=== PATIENT | male | born 1970 | race Caucasian/White ===

== ENCOUNTER → 2019-08-07 | Outpatient (CLI) | payer OTHER ==
[2019-08-07 20:19] LABS: HCT 48.1 % (39.0-53.0); HGB 16.3 gm/dL (13.0-17.5); MCH 29.9 pg (25.0-35.0); MCV 87.9 fL (80.0-100.0); Mean Platelet Volume 8.4; Platelet Count 249 k/uL (150-450); RBC 5.46 m/uL (4.30-5.90); RDW 12.1 % (11.5-15.5); WBC 8.1 k/uL (3.8-10.6)
[2019-08-07 20:56] LABS: Band Neutrophils % 1 %; Lymphocytes # (M) 2.19 k/uL (1.0-4.8); Monocytes # (M) 1.13 k/uL (0-1.0); Neutrophils % (M) 58 %; Nucleated Red Blood Cells 0 /100 WBC (0-0); Total Cells Counted 100
[2019-08-07 23:47] LABS: African American GFR (CKD) 102.7 (60.0-200.0); Albumin 4.7 g/dL (3.80-4.90); Albumin/Globulin Ratio 2.35 (1.60-3.17); Anion Gap 8.7 mmol/L (4.00-12.00); Calcium 9.3 mg/dL (8.7-10.3); Carbon Dioxide 28.3 mmol/L (21.6-31.8); Magnesium 1.8 mg/dL (1.5-2.4); Non-African American GFR(CKD) 88.6 (60.0-200.0); Potassium 3.8 mmol/L (3.5-5.5); Total Bilirubin 0.8 mg/dL (0.3-1.2); Total Protein 6.7 g/dL (6.2-8.2)
== END | disposition home or self-care (01) ==
LOC: LABMAIN 18:58
PROVIDERS: ATTEND Nurse Practitioner Family
DX: R19.7 Diarrhea, unspecified (principal)
CPT/HCPCS: 36415; 80053; 83735; 84443; 85025; 87045; 87046; 87324; 87328; 87329

== ENCOUNTER → 2021-04-28 | Outpatient (CLI) | payer OTHER ==
--- NOTE | 2021-04-28 17:23 | MR ---
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 Technique: Multiplanar, multisequence images of the left wrist were obtained after intra-articular ad ministration of a gadolinium mixture. Please refer to arthrogram injection report of the same day for further details. FINDINGS: Dorsal subluxation at the level of the distal radioulnar joint. Poor delineation to the volar radioul giuseppe ligament. Subtle thickness defect across the central portion of the TFC and contrast extension into the distal radioulnar joint. Anterior subluxation of the extensor carpi ulnaris. The patient's forearm is in a pronated position. Contrast extends into the ECU tendon sheath across the expected ulnar-sided attachment of the ECU sub sheath. Incidental bone island distal radial epiphysis and within the distal two third scaphoid. No suspiciou s bone marrow placement. No bone marrow edema. There is a type II hamate incidentally noted. No abnormal extension of injected contrast into the second carpal row to suggest injury to the scapho lunate ligament. There is mild iatrogenic extravasation along the ulnar aspect of the wrist. Otherwise, the dorsal extensor and volar flexor tendons appears satisfactory. No abnormal enlargement of the median nerve. IMPRESSION: 1. Tear involving the ulnar-sided attachment of the ECU subsheath allowing for anterior ECU tendon anderson bluxation. 2. Small full-thickness tear through the central portion of the TFC with contrast secondarily enterin g the distal radioulnar joint. 3. Dorsal subluxation at the distal radioulnar joint with poor delineation to the volar radioulnar li gament. Findings suggest ligamentous sprain or tear. Correlate for any DRUJ instability.
--- NOTE | 2021-05-01 00:47 | FL ---
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 PROCEDURES: 1. Left wrist fluoroscopy. 2. Left wrist arthrogram. TECHNIQUE: The procedure, risks, and alternatives, were discussed with the patient, who requested that keeley claudio. The consent form was signed, and teach-back occurred. The site/side of the procedure was marked with a line with participation by the patient. The accompan katelyn paperwork was verified for consistency. A directed history and physical exam was performed prior to the procedure. Medication reconciliation was performed by ancillary personnel. A critical pause was performed with assisting personnel just pr ior to the procedure, and the patient's identity was confirmed using 2 identifiers. Imaging guidance was utilized to select the precise skin entry point just prior to the procedure. The dorsal left wrist was prepped and draped in the usual sterile fashion and local 1% lidocaine anes thesia was instilled. Under fluoroscopic guidance, a long 25-gauge needle was introduced into the do rsal aspect of the radioscaphoid joint. Appropriate needle tip position was confirmed after a small a mount of contrast injection. Approximately 2.5 ml of a gadolinium mixture (taken from a combination of 5 ml Isovue-370, 15 mL ster ile saline, and 0.07 mL Gadavist) was injected into the glenohumeral joint. The needle was then remov ed. The patient tolerated the procedure well. There was no immediate complication. After the procedure, the patient's condition was unchanged. Estimated blood loss was minimal. IMPRESSION: Technically successful left wrist arthrogram injection for MRI. No immediate complication.
== END | disposition home or self-care (01) ==
LOC: RADFLMAIN 13:13
PROVIDERS: ATTEND Orthopaedic Surgery Hand Surgery
DX: S53.31XA Traumatic rupture of right ulnar collateral ligament, initial encounter (principal); X58.XXXA Exposure to other specified factors, initial encounter
CPT/HCPCS: 25246; 73115; 73222; A9585; Q9967

== ENCOUNTER 2023-01-30 00:56 | Emergency (ER) | payer OTHER ==
[2023-01-30 01:03] VITALS: TEMP 97.5
[2023-01-30 01:50] LABS: ALT 25 U/L (4-49); AST 29 U/L (17-59); African American GFR (CKD) 82 (>60 ml/min/1.73 sqM); Albumin 4.5 g/dL (3.5-5.0); Alkaline Phosphatase 72 U/L (38-126); Anion Gap 8 mmol/L; Blood Urea Nitrogen 24 mg/dL (9-20); Carbon Dioxide 26 mmol/L (22-30); Chloride 105 mmol/L (98-107); Glucose 104 mg/dL (74-99); Non-African American GFR(CKD) 71 (>60 ml/min/1.73 sqM); Potassium 4.2 mmol/L (3.5-5.1); Sodium 139 mmol/L (137-145); Total Bilirubin 0.5 mg/dL (0.2-1.3); Total Protein 7.5 g/dL (6.3-8.2)
[2023-01-30 01:51] LABS: Basophils # (A) 0.1 k/uL (0-0.2); Basophils % (A) 1 %; Eosinophils # (A) 0.2 k/uL (0-0.7); Eosinophils % (A) 2 %; HCT 47.2 % (39.0-53.0); HGB 16.3 gm/dL (13.0-17.5); Lymphocytes # (A) 3.5 k/uL (1.0-4.8); Lymphocytes % (A) 34 %; MCH 30.9 pg (25.0-35.0); MCHC 34.6 g/dL (31.0-37.0); MCV 89.1 fL (80.0-100.0); Monocytes # (A) 0.7 k/uL (0-1.0); Monocytes % (A) 7 %; Neutrophils # (A) 5.8 k/uL (1.3-7.7); Neutrophils % (A) 56 %; Partial Thromboplastin Time 26.8 sec (22.0-30.0); Platelet Count 247 k/uL (150-450); Prothrombin Time 10.9 sec (9.0-12.0); RDW 12.3 % (11.5-15.5); WBC 10.4 k/uL (3.8-10.6)
[2023-01-30] MEDS ORDERED: LORazepam 0.5 MG TAB PO STA (04:10)
--- NOTE | 2023-01-30 05:34 | ED ---
General Adult HPI - General Chief complaint: Shortness of Breath Stated complaint: Chest Tightness, Shortness of Breath Time Seen by Provider: 01/30/23 04:00 Source: patient, RN notes reviewed, old records reviewed Mode of arrival: ambulatory Limitations: no limitations - History of Present Illness Initial comments: Patient is a 52-year-old male with past medical history remarkable for very mild asthma who presents emergency Department complaining of a chest tightness sensation. States it feels like his heart is squeezing. States he has these episodes on and off on a regular basis but this evening seemed a little bit worse. 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 Denies any cardiac history. Does not smoke. Denies any shortness of breath with it. States it feels like a squeezing/tightness..Patient states that when he is having the chest tightness he is having some mild shortness of breath with it. It is more of a feeling that the chest tightness is overbearing. Usually with rest because away but states that it was worse this evening. States started this evening while watching TV. Does endorse a recent stressors. Patient does discuss the stressors a lot, it does appear that he is anxious. States he was prescribed medications for anxiety place PCP but he has not started them. Presents for further evaluation at this time. At the time of my reevaluation, patient is pain-free. Work up was started while the patient was in triage. - Related Data Home Medications Medication Instructions Recorded Confirmed No Known Home Medications 09/15/19 10/02/19 Allergies Allergy/AdvReac Type Severity Reaction Status Date / Time cats and dust Allergy Unknown Uncoded 01/30/23 01:03 Review of Systems ROS Statement: Those systems with pertinent positive or pertinent negative responses have been documented in the HPI. Review of Systems: CONST: Denies fever EYES: Denies blurry vision ENT: Denies nasal congestion C/V: Denies Chest pain RESP: Denies shortness of breath GI: Denies abdominal pain : Denies dysuria SKIN: Denies rash. MSK: Denies joint pain. NEURO: Denies headache ROS Other: All systems not noted in ROS Statement are negative. Past Medical History Past Medical History: Asthma Additional Past Medical History / Comment(s): PT STATES HAS HAD AN ALLERGY INDUCED DRY COUGH FOR PAST WEEK, NO FEVER, NO SOB. 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 HEAD: Normal with no signs of head trauma. EYES: PERRLA, EOMI, conjunctiva normal, no discharge. ENT: Hearing grossly intact, normal oropharynx. RESPIRATORY: Clear breath sounds bilaterally. No wheezes, rales, or rhonchi. C/V: Regular rate and rhythm. S1 and S2 auscultated,peripheral pulses 2+ and in tact throughout ABD: Abd is soft, nontender, nondistended EXT: Normal range of motion, no obvious deformity SKIN: No rashes or lesions observed on exposed skin. NEURO: Alert and oriented 4. Limitations: no limitations Course Vital Signs 01/30/23 01:00 Temperature 97.5 F L Pulse Rate 79 Respiratory 18 Rate Blood Pressure 143/88 O2 Sat by Pulse 97 Oximetry Medical Decision Making - Medical Decision Making Was pt. sent in by a medical professional or institution (MISSY Richardson, ELECTRIC POWER MACHINE OPERATOR, urgent care, hospital, or halfway...) When possible be specific @ -No Did you speak to anyone other than the patient for history (EMS, parent, family, police, friend...)? What history was obtained from this source @ -No Did you review nursing and triage notes (agree or disagree)? Why? @ -I reviewed and agree with nursing and triage notes Were old charts reviewed (outside hosp., previous admission, EMS record, old EKG, old radiological studies, urgent care reports/EKG's, halfway records)? Report findings @ -No old charts were reviewed Differential Diagnosis (chest pain, altered mental status, abdominal pain women, abdominal pain men, vaginal bleeding, weakness, fever, dyspnea, syncope, headache, dizziness, GI bleed, back pain, seizure, CVA, palpatations, mental health, musculoskeletal)? @ -Differential Chest Pain: Stable Angina, Unstable Angina, STEMI, NSTEMI Aortic Dissection, Pneumothorax, Musculoskeletal, Esophageal Spasm GERD, Cholecystitis, Pancreatitis, Zoster, this is not meant to be an all-inclusive list. EKG interpreted by me (3pts min.). @ -As above X-rays interpreted by me (1pt min.). @ -Chest x-ray revealed no obvious acute cardio pulmonary process. CT interpreted by me (1pt min.). @ -None done U/S interpreted by me (1pt. min.). @ -None done What testing was considered but not performed or refused? (CT, X-rays, U/S, labs)? Why? @ -None What meds were considered but not given or refused? Why? @ -None Did you discuss the management of the patient with other professionals (professionals i.e. , PA, ELECTRIC POWER MACHINE OPERATOR, lab, RT, psych nurse, psychosocial rehabilitation counselor, termite exterminator helper, teacher, quarantine officer, caseworker intake)? Give summary @ -No Was smoking cessation discussed for >3mins.? @ -No Was critical care preformed (if so, how long)? @ -No Were there social determinants of health that impacted care today? How? (Homelessness, low income, unemployed, alcoholism, drug addiction, dacosta sportation, low edu. Level, literacy, decrease access to med. care, care home, rehab)? @ -No Was there de-escalation of care discussed even if they declined (Discuss DNR or withdrawal of care, Hospice)? DNR status @ -No What co-morbidities impacted this encounter? (DM, HTN, Smoking, COPD, CAD, Cancer, CVA, ARF, Chemo, Hep., AIDS, mental health diagnosis, sleep apnea, morbid obesity)? @ -None Was patient admitted / discharged? Hospital course, mention meds given and route, prescriptions, significant lab abnormalities, going to OR and other pertinent info. @ -Based on the patient's presentation and physical exam, patient's workups was started in triage. Presents today with a chest tightness sensation that is chronic. Appears to be anxiety related. No cardiac history. I would like to obtain a cardiac workup. This is already started in triage and labs are re markable for an undetectable troponin. EKG shows no obvious acute ischemic process. Chest x-ray is unremarkable. Vital signs within acceptable limits. Patient will be given a small dose of Ativan we will obtain a 3 hour troponin. He was in agreement with this plan. Repeat troponin is still undetectable. Patient's chest pain remains resolved. I discussed with him I do have a strong suspicion this is likely from anxiety. Patient's heart score is low. I believe it is safe for him to be discharged home with close follow-up. He was in agreement this plan. I instructed the patient to follow up with their PCP in the next 1-3 days. I explained that the patient should return to the emergency department if they experience any worsening symptoms. Strict return precautions were discussed with the patient. The patient expressed understanding of these instructions. I answered all questions that the patient had. The patient was discharged home in good condition with their prescriptions and follow up information. Undiagnosed new problem with uncertain prognosis? @ -No Drug Therapy requiring intensive monitoring for toxicity (Heparin, Nitro, Insulin, Cardizem)? @ -No Were any procedures done? @ -No Diagnosis/symptom? @ -Atypical chest pain, anxiety Acute, or Chronic, or Acute on Chronic? @ -Acute on chronic Uncomplicated (without systemic symptoms) or Complicated (systemic symptoms)? @ -Uncomplicated Side effects of treatment? @ -No Exacerbation, Progression, or Severe Exacerbation? @ -No Poses a threat to life or bodily function? How? (Chest pain, USA, [place], pneumonia, PE, COPD, DKA, ARF, appy, cholecystitis, CVA, Diverticulitis, Homicidal, Suicidal, threat to staff... and all critical care pts) @ -No - Lab Data Result diagrams: 01/30/23 01:29 01/30/23 01:29 Lab Results 01/30/23 01/30/23 01/30/23 Range/Units 01:25 01:29 01:29 WBC 10.4 (3.8-10.6) k/uL RBC 5.30 (4.30-5.90) m/uL Hgb 16.3 (13.0-17.5) gm/dL Hct 47.2 (39.0-53.0) % MCV 89.1 (80.0-100.0) fL MCH 30.9 (25.0-35.0) pg MCHC 34.6 (31.0-37.0) g/dL RDW 12.3 (11.5-15.5) % Plt Count 247 (150-450) k/uL MPV 8.0 Neutrophils % 56 % Lymphocytes % 34 % Monocytes % 7 % Eosinophils % 2 % Basophils % 1 % Neutrophils # 5.8 (1.3-7.7) k/uL Lymphocytes # 3.5 (1.0-4.8) k/uL Monocytes # 0.7 (0-1.0) k/uL Eosinophils # 0.2 (0-0.7) k/uL Basophils # 0.1 (0-0.2) k/uL PT 10.9 (9.0-12.0) sec INR 1.0 (<1.2) APTT 26.8 (22.0-30.0) sec Sodium (137-145) mmol/L Potassium (3.5-5.1) mmol/L Chloride (98-107) mmol/L Carbon Dioxide (22-30) mmol/L Anion Gap mmol/L BUN (9-20) mg/dL Creatinine (0.66-1.25) mg/dL Est GFR (CKD-EPI)AfAm (>60 ml/min/1.73 sqM) Est GFR (CKD-EPI)NonAf (>60 ml/min/1.73 sqM) Glucose (74-99) mg/dL Calcium (8.4-10.2) mg/dL Magnesium (1.6-2.3) mg/dL Total Bilirubin (0.2-1.3) mg/dL AST (17-59) U/L ALT (4-49) U/L Alkaline Phosphatase (38-126) U/L Troponin I <0.012 (0.000-0.034) ng/mL Total Protein (6.3-8.2) g/dL Albumin (3.5-5.0) g/dL 01/30/23 01/30/23 Range/Units 01:29 04:40 WBC (3.8-10.6) k/uL RBC (4.30-5.90) m/uL Hgb (13.0-17.5) gm/dL Hct (39.0-53.0) % MCV (80.0-100.0) fL MCH (25.0-35.0) pg MCHC (31.0-37.0) g/dL RDW (11.5-15.5) % Plt Count (150-450) k/uL MPV Neutrophils % % Lymphocytes % % Monocytes % % Eosinophils % % Basophils % % Neutrophils # (1.3-7.7) k/uL Lymphocytes # (1.0-4.8) k/uL Monocytes # (0-1.0) k/uL Eosinophils # (0-0.7) k/uL Basophils # (0-0.2) k/uL PT (9.0-12.0) sec INR (<1.2) APTT (22.0-30.0) sec Sodium 139 (137-145) mmol/L Potassium 4.2 (3.5-5.1) mmol/L Chloride 105 (98-107) mmol/L Carbon Dioxide 26 (22-30) mmol/L Anion Gap 8 mmol/L BUN 24 H (9-20) mg/dL Creatinine 1.18 (0.66-1.25) mg/dL Est GFR (CKD-EPI)AfAm 82 (>60 ml/min/1.73 sqM) Est GFR (CKD-EPI)NonAf 71 (>60 ml/min/1.73 sqM) Glucose 104 H (74-99) mg/dL Calcium 9.0 (8.4-10.2) mg/dL Magnesium 2.0 (1.6-2.3) mg/dL Total Bilirubin 0.5 (0.2-1.3) mg/dL AST 29 (17-59) U/L ALT 25 (4-49) U/L Alkaline Phosphatase 72 (38-126) U/L Troponin I <0.012 (0.000-0.034) ng/mL Total Protein 7.5 (6.3-8.2) g/dL Albumin 4.5 (3.5-5.0) g/dL - EKG Data -: EKG Interpreted by Me EKG Comments: 12-lead Electrocardiogram Interpretation Note EKG was reviewed and interpreted by myself. 12-lead ECG performed at 0109 is interpreted by me as revealing normal sinus rhythm at a rate of 77 beats per minute. [place] is durable. LA interval 148 ms, QRS duration is 90 ms, QTc is 409 ms.. There were no ST or T wave abnormalities to suggest myocardial ischemia or injury. R wave progression across the precordium was satisfactory. By my interpretation this EKG is non-diagnostic for acute ischemia. Disposition Clinical Impression: Atypical chest pain, Anxiety Disposition: HOME SELF-CARE Condition: Good Instructions (If sedation given, give patient instructions): Chest Pain (ED), Anxiety (ED) Is patient prescribed a controlled substance at d/c from ED?: No Referrals: Félix Bush MD [Primary Care Provider] - 1-2 days Time of Disposition: 05:24
[2023-01-30 06:33] VITALS: BP 125/90; PULSE 73; RESP 16
--- NOTE | 2023-01-30 07:22 | XR ---
EXAMINATION TYPE: XR chest 2V DATE OF EXAM: 01/30/2023 2:18 AM COMPARISON: Chest radiographs from 01/30/2023 TECHNIQUE: XR chest 2V Frontal and lateral views of the chest. CLINICAL INDICATION:Male, 52 years old with history of chest pain; FINDINGS: Lungs/Pleura: There is no evidence of pleural effusion, focal consolidation, or pneumothorax. Pulmonary vascularity: Unremarkable. Heart/mediastinum: Cardiomediastinal silhouette is unremarkable. Musculoskeletal: No acute osseous pathology. IMPRESSION: No acute cardiopulmonary disease/process.
== END 2023-01-30 05:55 | disposition home or self-care (01) ==
LOC: EC 00:56
DX: R07.89 Other chest pain (principal); F41.9 Anxiety disorder, unspecified; J45.909 Unspecified asthma, uncomplicated; F12.90 Cannabis use, unspecified, uncomplicated; Z91.048 Other nonmedicinal substance allergy status
CPT/HCPCS: 36415; 71046; 80053; 83735; 84484; 85025; 85610; 85730; 93005; 99285

== ENCOUNTER 2023-07-11 13:25 | Emergency (ER) | payer OTHER ==
--- NOTE | 2023-07-11 13:51 | ED ---
General Adult HPI - General Chief complaint: Upper Respiratory Infection Stated complaint: Cough, JANE Time Seen by Provider: 07/11/23 13:34 Source: patient, RN notes reviewed Mode of arrival: ambulatory Limitations: no limitations - History of Present Illness Initial comments: 52-year-old male with past medical history significant for exercise- induced asthma presents the emergency department with a chief complaint of cough. Patient has had a persistent cough for the last 10 days. He reports that last night and this morning and has had a yellow to brown in color. He denies any known fevers, headache, chest pain or palpitations, nausea or vomiting, abdominal pain. Patient denies tobacco product use - Related Data Previous Rx's Medication Instructions Recorded Albuterol Inhaler [Ventolin Hfa 1 puff INHALATION QID #8 gm 07/11/23 Inhaler] Azithromycin [Zithromax Z Pack] 0 tab PO DIRECTED #6 tab 07/11/23 Benzonatate [Tessalon Perles] 100 mg PO TID PRN #30 capsule 07/11/23 predniSONE 50 mg PO DAILY #5 tab 07/11/23 Allergies Allergy/AdvReac Type Severity Reaction Status Date / Time cats and dust Allergy Unknown Uncoded 07/11/23 14:50 Review of Systems ROS Statement: Those systems with pertinent positive or pertinent negative responses have been documented in the HPI. ROS Other: All systems not noted in ROS Statement are negative. Past Medical History Past Medical History: Asthma Additional Past Medical History / Comment(s): PT STATES HAS HAD AN ALLERGY INDUCED DRY COUGH FOR PAST WEEK, NO FEVER, NO SOB. 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 Eyes PERRL, EOMI intact, mucous membranes moist Respiratory: Lungs clear to auscultation bilaterally Cardiovascular: Heart rate regular rate and rhythm Abdominal: Soft without guarding or rebound Extremities: Normal inspection with full range of motion and normal capillary refill Neuroogic: alert and oriented 3, CN II-XII intact, able to ambulate with steady gait Skin: warm dry and intact with normal color Limitations: no limitations Course Vital Signs 07/11/23 13:30 Temperature 98.9 F Pulse Rate 79 Respiratory 18 Rate Blood Pressure 113/74 O2 Sat by Pulse 96 Oximetry - Reevaluation(s) Reevaluation #1: 07/11/23 14:55 Patient reevaluated. Patient updated on results. Patient agreeable with the plan for discharge home Medical Decision Making - Medical Decision Making Was pt. sent in by a medical professional or institution (, MISSY, SEAFOOD CLERK, urgent care, hospital, or long term...) When possible be specific @ -[No] Did you speak to anyone other than the patient for history (EMS, parent, family, police, friend...)? What history was obtained from this source @ -[No] Did you review nursing and triage notes (agree or disagree)? Why? @ -[I reviewed and agree with nursing and triage notes] Were old charts reviewed (outside hosp., previous admission, EMS record, old EKG, old radiological studies, urgent care reports/EKG's, long term records)? Report findings @ -[No old charts were reviewed] Differential Diagnosis (chest pain, altered mental status, abdominal pain women, abdominal pain men, vaginal bleeding, weakness, fever, dyspnea, syncope, headache, dizziness, GI bleed, back pain, seizure, CVA, palpatations, mental health, musculoskeletal)? @ -[not applicable] EKG interpreted by me (3pts min.). @ -[As above] X-rays interpreted by me (1pt min.). @ X-ray does not reveal any focal consolidation or cardiomegaly. CT interpreted by me (1pt min.). @ -[None done] U/S interpreted by me (1pt. min.). @ -[None done] What testing was considered but not performed or refused? (CT, X-rays, U/S, labs)? Why? @ -[None] What meds were considered but not given or refused? Why? @ -[None] Did you discuss the management of the patient with other professionals (professionals i.e. , MISSY, SEAFOOD CLERK, lab, RT, psych nurse, social insurance administrator, numerical control nesting operator, teacher, gunnery/ordnance officer, foster care case manager)? Give summary @ -[No] Was smoking cessation discussed for >3mins.? @ -[No] Was critical care preformed (if so, how long)? @ -[No] Were there social determinants of health that impacted care today? How? (Homelessness, low income, unemployed, alcoholism, drug addiction, transportation, low edu. Level, literacy, decrease access to med. care, [facility], rehab)? @ -[No] Was there de-escalation of care discussed even if they declined (Discuss DNR or withdrawal of care, Hospice)? DNR status @ -[No] What co-morbidities impacted this encounter? (DM, HTN, Smoking, COPD, CAD, Cancer, CVA, ARF, Chemo, Hep., AIDS, mental health diagnosis, sleep apnea, morbid obesity)? @ -[None] Was patient admitted / discharged? Hospital course, mention meds given and route, prescriptions, significant lab abnormalities, going to OR and other pertinent info. @ -Charts. This is a pleasant 52-year-old male who presents to the emergency department with cough. Patient had a thorough history and physical exam performed. Patient does have a slight cough during evaluation. Vital signs stable upon evaluation No wheezes or rhonchi heard. Patient is afebrile and nontoxic appearing. Patient had x-ray and vital signs performed. Results negative. I discussed the results in detail the patient was examined and all questions addressed. He'll be provided prescription for azithromycin and prednisone and Tessalon Perles and albuterol inhaler. Return precautions discussed at length. Discharged in stable condition. Discussed with, ED attending who agrees with plan of care Undiagnosed new problem with uncertain prognosis? @ -[No] Drug Therapy requiring intensive monitoring for toxicity (Heparin, Nitro, Insulin, Cardizem)? @ -[No] Were any procedures done? @ -[No] Diagnosis/symptom? @ -Cough Acute, or Chronic, or Acute on Chronic? @ -Acute Uncomplicated (without systemic symptoms) or Complicated (systemic symptoms)? @ -Uncomplicated Side effects of treatment? @ -[No] Exacerbation, Progression, or Severe Exacerbation? @ -[No] Poses a threat to life or bodily function? How? (Chest pain, [place], [place], pneumonia, PE, COPD, DKA, ARF, appy, cholecystitis, CVA, Diverticulitis, Homicidal, Suicidal, threat to staff... and all critical care pts) @ -Low likelihood - Lab Data Lab Results 07/11/23 Range/Units 13:38 Influenza Type A (PCR) Not Detected (Not Detectd) Influenza Type B (PCR) Not Detected (Not Detectd) RSV (PCR) Not Detected (Not Detectd) SARS-CoV-2 (PCR) Not Detected (Not Detectd) Disposition Clinical Impression: Cough Disposition: HOME SELF-CARE Condition: Stable Instructions (If sedation given, give patient instructions): Upper Respiratory Infection (ED) Additional Instructions: Please take the antibiotic and prednisone prescribed Please return to the nearest emergency department if worsening symptoms Prescriptions: predniSONE 50 mg PO DAILY #5 tab Benzonatate [Tessalon Perles] 100 mg PO TID PRN #30 capsule PRN Reason: Cough Albuterol Inhaler [Ventolin Hfa Inhaler] 1 puff INHALATION QID #8 gm Azithromycin [Zithromax Z Pack] 0 tab PO DIRECTED #6 tab Is patient prescribed a controlled substance at d/c from ED?: No Referrals: Félix Bush MD [Primary Care Provider] - 1-2 days Time of Disposition: 14:48
[2023-07-11 13:52] VITALS: BP 113/74; PULSE 79; RESP 18; TEMP 98.9
--- NOTE | 2023-07-11 14:04 | XR ---
EXAMINATION TYPE: XR chest 2V DATE OF EXAM: 07/11/2023 COMPARISON: NONE HISTORY: Cough. TECHNIQUE: Frontal and lateral views of the chest are obtained. FINDINGS: There is no focal air space opacity, pleural effusion, or pneumothorax seen. The cardiac silhouette size is within normal limits. The osseous structures are intact. IMPRESSION: No acute cardiopulmonary process.
== END 2023-07-11 15:26 | disposition home or self-care (01) ==
LOC: EC 13:25
DX: R05.9 Cough, unspecified (principal); J45.909 Unspecified asthma, uncomplicated; F12.90 Cannabis use, unspecified, uncomplicated; Z88.8 Allergy status to other drugs, medicaments and biological substances; Z20.822 Contact with and (suspected) exposure to COVID-19
CPT/HCPCS: 71046; 87636; 99285